=== PATIENT | male | born 1950 | race Caucasian/White ===

== ENCOUNTER 2016-08-16 14:43 | Outpatient (CLI) | payer MEDICARE, OTHER ==
[2014-11-29 13:01] VITALS: BP 148/93
--- NOTE | 2016-08-16 20:52 | Diagnostic Imaging Report ---
Name: SRI DEE ~~ ~~ : 46 ~~ Acc #: [id number]~~ DOS : Aug 16, 2016 2:58:49 PM TRANSLATOR INTERPRETER ~~ Mod: CR ~~ Desc: CHEST 1 of 1 [place] [id number] [facility] [address] [place] [address]. [id number] ~ ~ ~ ~ Report Submission Date: Aug 16, 2016 3:42:27 PM TRANSLATOR INTERPRETER Patient ~ Study Name: SRI DEE ~ Date: Aug 16, 2016 2:58:49 PM TRANSLATOR INTERPRETER ~ Modality Type: CR Gender: M ~ Description: CHEST : 46 ~ Institution: [facility] Physician: LORENZO COLLAZO ~ ~ ~ ~ 3 views of the chest History: RIBS- FORMER SMOKER OF 35 YEARS, LEFT SIDED POSTERIOR RIB PAIN, COUGH, DIFFICULTY BREATHING, WHEEZING X2 MONTHS AFTER FALL. (Hx) / LEFT SIDED POSTERIOR RIB PAIN AT ABOUT THE 6TH RIB Findings: Comparison: Prior chest x-ray dated September 22, 2013 There is interval development of a lesion along the left lateral chest wall in the region of the left 5th rib, not seen on the prior study, the margins of the left posterior 5th rib are not clearly defined. There is no pneumothorax or left pleural effusion. Degenerative changes of the left shoulder. Impression: 1. Interval development of an approximately 9 x 6 cm lesion along the left lateral rib cage in the region of the left 5th and 6th ribs, margins of the left 5th rib are ill defined, erosion of the left 5th rib versus fracture is difficult to exclude. Differential diagnoses includes hematoma, malignancy, further evaluation with CT chest is suggested 2. No left pleural effusion or pneumothorax. ~ Electronically signed on Aug 16, 2016 3:42:27 PM TRANSLATOR INTERPRETER by: Claire Taylor Discussed by Dr. Taylor with Dr. Rodas on 08/16/16 at approx. 3:52 pm TRANSLATOR INTERPRETER Addendum electronically signed by Claire Taylor on August 16, 2016 3:56:41 PM TRANSLATOR INTERPRETER MTDD
== END 2016-08-16 14:44 ==
LOC: RAD 14:43
PROVIDERS: ATTEND Family Medicine
DX: R07.89 Other chest pain (principal)
CPT/HCPCS: 71100

== ENCOUNTER 2016-08-22 08:34 | Outpatient (CLI) | payer MEDICARE, OTHER ==
[2014-11-29 13:01] VITALS: BP 148/93
[2016-08-22 09:25] LABS: eGFR (African) > 60; eGFR (Non-African) > 60
--- NOTE | 2016-08-22 18:23 | Diagnostic Imaging Report ---
[facility] [id number] [facility].[address] [address] Report Submission Date: Aug 22, 2016 4:33:46 PM CAR USHER Patient Study Name: SRI DEE Date: Aug 22, 2016 9:41:57 AM CAR USHER Modality Type: CT\SR Gender: M Description: CT CHEST W/ CONTRAST : 46 Institution: [facility] Physician: LORENZO COLLAZO CT chest with IV contrast Clinical history: Chest mass with dyspnea Radiation dose DLP 762 There is a 6 x 4.6 cm mass of the left the pleura posterior upper with bone destruction of the left 5th rib in the area of 5 cm in length. 2nd lesion seen anteriorly along the left 5th rib indication most likely a metastatic lesion to the ribs. Hepatic steatosis. Normal pancreas and adrenal glands. 6 mm nodule seen in the superior segment of the right lower lobe. Additional osteolytic lesions are seen in the thoracic spine and some of the ribs with pathological fractures. No definite mediastinal or hilar adenopathy. 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 Single 6 mm nodule in the right lung Further scanning and evaluation is needed Electronically signed on Aug 22, 2016 4:33:46 PM CAR USHER by: Ryan CENTENO
== END 2016-08-22 08:35 ==
LOC: RAD 08:34
PROVIDERS: ATTEND Family Medicine
DX: R22.2 Localized swelling, mass and lump, trunk (principal)
CPT/HCPCS: 36415; 71260; 80048; Q9966